=== PATIENT | female | born 1970 | race Hispanic/Latino ===

== ENCOUNTER 2017-10-26 08:02 | Outpatient (CLI) | payer OTHER ==
--- NOTE | 2017-10-26 11:19 | Mammography Report ---
BILATERAL MAMMOGRAM: FINDINGS: There are scattered fibroglandular densities (approximately 25%-50% glandular). No mass, distortion, suspicious calcification, or skin change is seen. No significant change identified when compared to exams dating back to July 2015. CAD was utilized. IMPRESSION: Negative mammogram. There is no mammographic evidence of malignancy. RECOMMENDATION: Follow-up per ACS guidelines. BI-RADS CATEGORY: 1 = Negative ACR BI-RADS MAMMOGRAPHIC CODES: 0 = Needs additional imaging evaluation; 1 = Negative; 2 = Benign; 3 = Probably benign; 4 = Suspicious; 5 = Malignant; 6 = Known biopsy-proven malignancy COMMENT: 1. Dense breast tissue, i.e., adenosis, fibrocystic changes, etc., may obscure an underlying neoplasm. 2. Approximately 10% of cancers are not detected with mammography. 3. A negative mammography report should not delay biopsy if a clinically suspicious mass is present. COMMENT: Patient follow-up letters are generated in [employer].
== END 2017-10-26 08:03 | disposition home or self-care (01) ==
LOC: SPVWC 08:02
PROVIDERS: ATTEND Obstetrics & Gynecology
DX: Z12.31 Encounter for screening mammogram for malignant neoplasm of breast (principal)
CPT/HCPCS: 77067

== ENCOUNTER 2018-12-08 09:14 | Outpatient (CLI) | payer OTHER ==
--- NOTE | 2018-12-08 11:44 | Mammography Report ---
BILATERAL DIGITAL SCREENING MAMMOGRAM with CAD : 12/08/18 09:14:00 CLINICAL: Routine screening. COMPARISON:10/26/17 and mammograms going back to 08/05/15 FINDINGS: The breasts are heterogeneously dense, which may obscure small masses.A few bilateral benign calcifications. No mass, architectural distortion or suspicious calcifications. IMPRESSION: No mammographic evidence of malignancy. BI-RADS CATEGORY: 2 -- Benign RECOMMENDATION: Routine mammographic screening in one year. COMMENT: Patient follow-up letters are generated by our [employer] application.
== END 2018-12-08 09:15 | disposition home or self-care (01) ==
LOC: SPVWC 09:14
PROVIDERS: ATTEND Obstetrics & Gynecology
DX: Z12.31 Encounter for screening mammogram for malignant neoplasm of breast (principal)
CPT/HCPCS: 77067

== ENCOUNTER 2020-05-07 07:54 | Outpatient (CLI) | payer OTHER ==
--- NOTE | 2020-05-07 14:50 | Mammography Report ---
BILATERAL DIGITAL SCREENING MAMMOGRAM WITH CAD HISTORY: SCREENING MAMMOGRAM TECHNIQUE: Routine digital mammographic imaging performed. This examination was interpreted with sangita beltran benefit of Computer-aided Detection analysis. COMPARISON: 12/08/2018, 10/26/2017, 09/22/2016, 08/05/2015. FINDINGS: Breast Density: scattered fibroglandular appearance of the breast tissue. Digital CC and MLO views demonstrate no mammographic evidence of malignancy. Bilateral upper outer b reast calcifications are not significantly changed. Long-term stability would support a benign etiolo gy. IMPRESSION: No mammographic evidence of malignancy. If the clinical examination remains stable, recommend bilate ral mammogram in approximately one year. BIRADS 2: Benign Finding(s). FURTHER INFORMATION: According to the [employer], yearly mammograms are recommend ed starting at age 40 and continuing as long as a woman is in good health. Clinical Breast Exams shou ld be part of a periodic health exam-about every 3 years for women in their 20s and 30s and every yea r for women 40 and over. Breast self exam is an option for women starting in their 20s. Any breast ch rosa noted on a breast self exam should be reported promptly to the patient's healthcare provider. Br east MRI is recommended for women with an approximately 20-25% or greater lifetime risk of breast can cer, including women with a strong family history of breast or ovarian cancer and women who have been treated for Hodgkin's disease. A negative Mammography report should not discourage follow up or biopsy of a clinically significant f inding and/or abnormality. Dense breast tissue may obscure small neoplasms. The patient will be entered into a reminder system with a target due date for the next screening mamm ogram. Signer Name: Orlando Tsang MD Signed: 05/07/2020 2:45 PM Workstation Name: [id number]
== END 2020-05-07 07:55 | disposition home or self-care (01) ==
LOC: SPVWC 07:54
PROVIDERS: ATTEND Obstetrics & Gynecology
DX: Z12.31 Encounter for screening mammogram for malignant neoplasm of breast (principal); N64.89 Other specified disorders of breast
CPT/HCPCS: 77067

== ENCOUNTER 2021-05-13 08:21 | Outpatient (CLI) | payer OTHER ==
--- NOTE | 2021-05-13 14:24 | Mammography Report ---
DIGITAL SCREENING MAMMOGRAM WITH CAD, 05/13/2021 CLINICAL INFORMATION / INDICATION: Routine screening mammography. SCREENING MAMMOGRAM TECHNIQUE: Digital bilateral 2D mammography was obtained in the craniocaudal and mediolateral obliqu e projections. This examination was interpreted with the benefit of Computer-Aided Detection analysis . COMPARISON: 07/31/2010 through 05/07/2020. FINDINGS: Breast Density: There are scattered areas of fibroglandular density. No dominant mass, suspicious calcifications, or architectural distortion in either breast. Benign-appearing scattered calcifications in both upper outer quadrants, left greater than right, hav e not changed significantly. No new abnormality is seen. IMPRESSION: No mammographic evidence of malignancy. Follow up recommendation: Routine yearly BI-RADS Category 2: Benign. A "normal" or negative report should not discourage follow up or biopsy of a clinically significant f inding. A written summary of these findings will be mailed to the patient. The patient will be entered into a mammography reporting system which will generate a reminder letter for the patient's next appointmen t at the appropriate interval. The [employer] recommends yearly mammograms starting at age 40 and continuing as l vijay as a woman is in good health. Breast MRI is recommended for women with an approximate 20-25% or greater lifetime risk of breast cancer, including women with a strong family history of breast or ova sol cancer or who have been treated for Hodgkin's disease. Signer Name: Mike Okeefe MD Signed: 05/13/2021 2:19 PM Workstation Name: [id number]
== END 2021-05-13 08:22 | disposition home or self-care (01) ==
LOC: SPVWC 08:21
PROVIDERS: ATTEND Obstetrics & Gynecology
DX: Z12.31 Encounter for screening mammogram for malignant neoplasm of breast (principal)
CPT/HCPCS: 77067